=== PATIENT | male | born 1990 ===

== ENCOUNTER 2016-11-13 00:30 | Emergency (ER) | payer OTHER ==
[~2016-11-13] VITALS: Ht 190.5 cm; Wt 95.5 kg
[2016-11-13 00:31] VITALS: BP 111/73; PULSE 78; RESP 16; O2SAT 98
[2016-11-13] MEDS ORDERED: oxyCODONE-Acetamin 5-325 mg Tablet PO ONE (00:50)
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
[2016-11-13] MEDS ORDERED: _oxyCODONE/APAP 5-325 mg Tablet PO PRN (02:45)
[2016-11-13] MEDS ORDERED: _Cephalexin 500 mg Capsule PO SCH (08:30)
--- NOTE | 2016-11-13 09:06 | DRSVH ---
PROCEDURE: X-RAY TOESS, TWO VIEWS INDICATIONS: dropped bowling ball on right 1st and 2nd toes TECHNIQUE: 2 views of the right first through fourth toe(s) acquired. COMPARISON: None. FINDINGS: Bones: There is a comminuted fracture of the distal phalanx of the right second toe involving the art icular surface. Fragments are all minimally displaced from one another at most. There is a comminuted fracture of the distal phalanx of the right great toe not involving the articul ar surface with displacement of the distal fragments dorsally the thickness of the shaft. Soft tissues: No suspicious soft tissue densities. IMPRESSION: Fracture distal phalanges of the first and second toes of the right. Prominent displaceme nt of fracture fragments is seen of the distal phalanx of the right great toe. Dictated by: Andrews Williamson M.D. on 11/13/2016 at 9:02 Approved by: Andrews Williamson M.D. on 11/13/2016 at 9:04
== END 2016-11-13 03:18 | disposition home or self-care (01) ==
LOC: SED 00:30
DX: S92.421B Displaced fracture of distal phalanx of right great toe, initial encounter for open fracture (principal); S92.591A Other fracture of right lesser toe(s), initial encounter for closed fracture; W21.09XA Struck by other hit or thrown ball, initial encounter; Y92.838 Other recreation area as the place of occurrence of the external cause; Y93.54 Activity, bowling; Y99.8 Other external cause status

== ENCOUNTER 2016-11-15 08:58 | Day surgery (SDC) | payer OTHER ==
[2016-11-15] VITALS (8 sets, daily range): BP systolic 112–133; BP diastolic 60–70; PULSE 5–69; RESP 14–18; O2SAT 95–99
[~2016-11-15] VITALS: Ht 190.5 cm; Wt 97.7 kg
[2016-11-15] MEDS ORDERED: fentaNYL-PF 50 mCg/mL 2 mL Inj ONE (08:59)
[2016-11-15] MEDS ORDERED: Lactated Ringer's 1,000 ML IV ONE (09:12)
--- NOTE | 2016-11-15 09:12 | PCM.HPANE ---
Patient Data Surgeon Admitting Provider: Attending Provider:Dat Horn DPM Primary Care Physician:Bala Smith MD Other Provider: Reason for Visit Orif Right [place] Ht/WT & BMI Body Mass Index Allergies Coded Allergies: No Known Allergies (Unverified , 11/13/16) Diabetes History Hx Diabetes?: No Medications Reported Medications oxyCODONE-Acetaminophen 5-325 mg 1 Each Tablet1 Tab PO Q4H PRN For Pain Ref 0 11/15/16 Cephalexin (Keflex)500 Mg [id number] Mg PO TID #40 CAPSULE Ref 0 11/15/16 Ibuprofen 200 Mg [id number] Mg PO QID PRN For Pain Ref 0 11/15/16 Discontinued Reported Medications [Antibiotic] No Conflict Check Po Tid 11/15/16 History Cardiovascular History: Denies:: Congestive Heart Failure Hypertension Respiratory History: Denies:: Tuberculosis Hx Surgeries?: No Hx Diabetes: No Smoking Status: Unknown if Ever Smoker Stop/Bang Risk Assessment Category Category 1A: Patient has history of documented sleep apnea, and HAS NOT received any narcotic, sedative or anesthesia administration during this stay. Category 1B: Patient has history of documented sleep apnea, and HAS received any narcotic , sedative or anesthesia administration during this stay Category 2: Patient has SUSPECTED Obstructive Sleep Apnea, and HAS received any narcotic , sedative or anesthesia administration during this stay. Category 3: Patient has SUSPECTED Obstructive Sleep Apnea and HAS NOT received narcotic, sedative or anesthesia administration during this stay. Category 4: Outpatient in Procedural Areas with known sleep apnea or who screen positive for High Risk via the STOP/BANG questionnaire. Exam Exam General Appearance: Alert, Oriented X3, Cooperative, Mild Distress HEENT/AIRWAY: MP 2, Neck Movement (from), Mouth Opening (wnl) Lungs: Clear to Auscultation Heart: Exam Unremarkable Plan Impression Patient chart reviewed, patient interviewed and anesthestic plan with risks, benefits, and alternatives discussed, and informed consent obtained. ASA Physical Status: ASA1 Normal Healthy Anesthetic Plan: GA Bene/Risks/Altern/Consents: Yes HP Complete Prior to Induction: Yes Other Pt insists on GA over heavy sedation/block. Jay Thomas MD Nov 15, 2016 09:12
[2016-11-15] MEDS ORDERED: LORazepam 1 mg Tablet PO PRN (09:15)
[2016-11-15] MEDS ORDERED: IBUP200C PO (09:42)
[2016-11-15] MEDS ORDERED: ANTIBIOTIC PO (09:42)
[2016-11-15] MEDS: fentaNYL-PF 50 mCg/mL 2 mL Inj IVPUSH PRN ×2 (10:03→10:09)
[2016-11-15] MEDS ORDERED: Acetaminophen IV 1,000 MG in IV Premix 1 EACH IV ONE (10:05)
[2016-11-15] MEDS ORDERED: OXYC1TAB24 PO (10:30)
[2016-11-15] MEDS ORDERED: CEPH-512 PO (10:30)
[2016-11-15] MEDS ORDERED: CeFAZolin Inj 2 gm / 50mL D5W IV ONE (10:47)
[2016-11-15] MEDS ORDERED: Lactated Ringer's 500 ML IV PRN (11:16)
[2016-11-15] MEDS ORDERED: Lactated Ringer's 1,000 ML IV SCH (11:16)
[2016-11-15] MEDS ORDERED: EPHEDrine Sulfate 50 mg/mL Inj IVPUSH PRN (11:20)
[2016-11-15] MEDS ORDERED: hydrALAZINE 20 mg/mL Inj IVPUSH PRN (11:20)
[2016-11-15] MEDS ORDERED: HYDROmorphone 1 mg/mL Inj IVPUSH PRN (11:20)
[2016-11-15] MEDS ORDERED: Labetalol 5 mg/mL 4 mL Inj IV PRN (11:20)
[2016-11-15] MEDS ORDERED: fentaNYL-PF 50 mCg/mL 2 mL Inj IVPUSH PRN (11:20)
[2016-11-15] MEDS ORDERED: Bupivacaine 0.5% 50 mL Inj INFILTRATE ONE (11:20)
[2016-11-15] MEDS ORDERED: Atropine 0.4 mg/mL Inj IVPUSH PRN (11:20)
[2016-11-15] MEDS ORDERED: Gentamicin 40 mg/mL 2 mL Inj IRRIGATION ONE (11:20)
[2016-11-15] MEDS ORDERED: Dexamethasone 4 mg/mL Inj IVPUSH PRN (11:20)
[2016-11-15] MEDS ORDERED: Ondansetron 2 mg/mL 2 mL Inj IVPUSH PRN (11:20)
[2016-11-15] MEDS ORDERED: Phenylephrine 10,000 mCg/mL Inj IVPUSH PRN (11:20)
[2016-11-15] MEDS ORDERED: oxyCODONE-Acetamin 5-325 mg Tablet PO PRN (12:50)
--- NOTE | 2016-11-15 12:50 | PCM.PODPO ---
Podiatry Operative Report Date of Service: Nov 15, 2016 Date of Service Nov 15, 2016 Pre Operative Diagnosis Open comminuted fracture distal phalanx right hallux Post Operative Diagnosis Same Procedure ORIF distal phalangeal fracture right foot Surgeon Surgeon: Dat Horn DPM Assistants: None Indication for Procedure Same Findings Same Details of Procedure Patient was brought to the operative suite and placed on the table in the supine position. Surgical time out was observed. Upon initiation of general anesthesia by the anesthesiologist the right forefoot was anesthetized utilizing 10 cc 0.5% Marcaine plain via a [place] block. A well-padded pneumatic ankle tourniquet was applied but not utilized intraoperatively. The right lower extremity was prepped and draped in usual aseptic manner. The nail plate which was traumatically avulsed proximally was removed, a small laceration of 4- 5 mm was noted in the underlying nail bed. The site was then reprepped with Betadine post nail avulsion. Attention was directed to the plantar hallux where there was noted to be a stellate laceration extruding subcutaneous tissue and a connected bone fragment of the distal phalangeal base. An approximately 3 cm midline anterior incision was made on the plantar surface of the hallux exposing the fracture. The flexor tendon was noted to be intact at its insertion on the base of the distal phalanx. Fracture fragments were realigned and it was felt that the distal medial fragment would support screw fixation however the lateral fragment was too small. These 2.7 5 hole T plate was utilized. 22.7 screws were utilized to fixate the plate to the plantar surface of the distal phalanx and a second 2.7 cortical screw was utilized to fixate the distal medial fragment. An attempt was made to fixate the distal lateral fragment however there was insufficient bone stock to perform this. An attempt was made to place the plate distal to the interphalangeal joint and there was noted to be good flexion available however radiographically it did appear that the plate extended proximally slightly but given the very limited bone area to work with the decision was made to leave the fixation plate although removal may become necessary. Additionally when all fracture fragments were realigned there was noted to be a mid substance defect and a decision was made to pack this with allogeneic cancellus bone chips. Fixation was felt to be reasonably robust and closure was achieved utilizing 4. 0 Vicryl and 3. 0 Prolene. The stellate wound was debrided and primary closure without undue tensioning was performed. A small laceration on the dorsum of the hallux was also repaired. The hallux was infiltrated with an additional 5 cc 0.5% Marcaine via a proximal digital block, antibiotic ointment Adaptic dressing was applied followed by a noncompressive gauze bandage. Patient was extubated uneventfully and left the operating suite in apparently satisfactory condition. There were no complications. Grafts, Implants: Grafts-See Implant Record, Implants-See Implant Record Complications There were no periprocedural complications identified. Condition Stable Anesthetic Administered: GA Drains: None Catheters: None Output, Estimated Blood Loss: 20 Blood Admin during surgery: No Surgical Cast or Splint: Post-op Boot Surgical Specimen Removed: No Specimen sent to Pathology: No Post Operative Plan Patient will be seen in the clinic in 48 hours for wound check and dressing change. Dat Horn DPM Nov 15, 2016 12:50
--- NOTE | 2016-11-15 14:08 | PCM.ANEP1 ---
Post Anesthesia Phase 1 PACU Phase 1 Assessment Date of Service: Nov 15, 2016 Vital Signs Vital Signs Date Time Temp Pulse Resp B/P Pulse Ox O2 Delivery O2 Flow Rate FiO2 11/15/16 13:19 36.3 5 15 122/69 98 Room Air 11/15/16 13:10 60 16 114/70 99 11/15/16 12:55 69 15 114/70 98 11/15/16 12:50 63 14 112/61 95 11/15/16 12:45 53 15 121/65 97 11/15/16 12:40 36.5 53 17 133/62 96 Room Air 11/15/16 09:49 36.3 56 18 115/60 99 Room Air Anesthetic Administered: GA Level of Alertness: Awake, talking LEDESMA's with Equal Strength: Yes Pain: No Nausea or Vomiting: No Oxygen Delivery: Room Air Lungs: Normal Air Movement Jay Thomas MD Nov 15, 2016 14:08
--- NOTE | 2016-11-16 09:44 | PCM.ANEP2 ---
Post Anesthesia Evaluation ASA/CMS Post Anesthesia VS in Patient's Normal Range?: Yes Resp Stable; Airway Patent?: Yes CV Function & Hydration Stable: Yes Mental Status Recovered?: Yes Pain control Satisfactory?: Yes N/V Control Satisfactory?: Yes Jay Thomas MD Nov 16, 2016 09:44
== END 2016-11-15 23:59 | disposition home or self-care (01) ==
LOC: SAS 08:58
PROVIDERS: ATTEND Podiatrist
DX: S92.421B Displaced fracture of distal phalanx of right great toe, initial encounter for open fracture (principal); S91.211A Laceration without foreign body of right great toe with damage to nail, initial encounter; W21.09XA Struck by other hit or thrown ball, initial encounter; Y93.54 Activity, bowling; Y92.89 Other specified places as the place of occurrence of the external cause; Y99.8 Other external cause status
CPT/HCPCS: 11730; 28505; C1713; J0131; J0690; J1580; J2250; J3010; J7120